=== PATIENT | male | born 1985 | race Caucasian/White ===

== ENCOUNTER 2017-01-27 11:40 | Outpatient (CLI) | payer MEDICAID ==
[2017-01-27 18:25] LABS: BASOPHILS % (AUTO) 0.6 %; EOSINOPHILS # (AUTO) 0.2 10^3/uL (0.0-0.7); EOSINOPHILS % (AUTO) 2.7 %; HCT - HEMATOCRIT 43.6 % (42.0-52.0); HGB - HEMOGLOBIN 14.5 g/dL (14.0-18.0); LYMPHOCYTES # (AUTO) 1.6 10^3/uL (1.5-3.5); LYMPHOCYTES % (AUTO) 27.4 %; MEAN CORPUSCULAR HEMOGLOBIN 30.2 pg (27.0-31.0); MEAN CORPUSCULAR HGB CONC 33.3 g/dL (32.0-36.0); MEAN CORPUSCULAR VOLUME 90.7 fL (80.0-94.0); MEAN PLATELET VOLUME 10.3 fL (7.4-11.4); MONOCYTES # (AUTO) 0.5 10^3/uL (0.0-1.0); MONOCYTES % (AUTO) 7.7 %; NEUTROPHILS # (AUTO) 3.6 10^3/uL (1.5-6.6); NEUTROPHILS % (AUTO) 61.6 %; RED CELL DISTRIBUTION WIDTH 14.6 % (12.0-15.0); UNCORRECTED WHITE BLOOD COUNT 5.9 x10^3/uL; WHITE BLOOD COUNT 5.9 x10^3/uL (4.8-10.8)
[2017-01-27 18:56] LABS: BILIRUBIN,TOTAL 0.9 mg/dL (0.2-1.0); CALCIUM 9.3 mg/dL (8.5-10.3); CREATININE 0.7 mg/dL (0.6-1.2); POTASSIUM 3.3 mmol/L (3.5-5.0)
== END 2017-01-27 11:41 | disposition home or self-care (01) ==
LOC: LAB.F 11:40
PROVIDERS: ATTEND Physician Assistant Medical
DX: Z13.9 Encounter for screening, unspecified (principal)
CPT/HCPCS: 36415; 80053; 84403; 84443; 85025